=== PATIENT | male | born 1985 ===

== ENCOUNTER 2021-07-25 10:52 | Day surgery (SDC) | payer OTHER ==
[~2021-07-25] VITALS: Ht 182.9 cm; Wt 106.5 kg
[2021-07-25 11:18] VITALS: BP 128/78; PULSE 75; TEMP 98.1
[2021-07-25] MEDS ORDERED: NORCO 325 MG-51 TAB PO (15:12)
[2021-07-25 15:50] VITALS: BP 127/77; PULSE 74; TEMP 97.4
--- NOTE | 2021-07-25 15:50 | NUR ---
Patient arrives to [facility] [place] [address] via cart, accompanied by [employer] Minda. He is alert and oriented. He denies pain or nausea. He has 3 clean/dry/intact bandaids on his abdomen. He requests and receives soda and pudding to eat.
[2021-07-25 16:05] VITALS: BP 116/61; PULSE 79
--- NOTE | 2021-07-25 16:05 | NUR ---
Patient is tolerating PO well. VSS on room air. Denies pain, nausea, or need.
[2021-07-25 16:20] VITALS: BP 128/77; PULSE 65
--- NOTE | 2021-07-25 16:29 | NUR ---
Patient ambulates to the restroom, voids, and returns to room. He has met discharge criteria. Discharge instructions are discussed. He denies any questions and verbalizes understanding. PIV is removed with catheter intact and hemostasis achieved. He changes to his clothing independently.
--- NOTE | 2021-07-25 16:34 | NUR ---
Patient is escorted to the exit via wheelchair. He is discharged to home to the care of his mom, who drives him home in a private vehicle at [id number].
== END 2021-07-25 16:34 | disposition home or self-care (01) ==
LOC: SDCO 10:52
DX: K40.90 Unilateral inguinal hernia, without obstruction or gangrene, not specified as recurrent (principal); F17.210 Nicotine dependence, cigarettes, uncomplicated
CPT/HCPCS: C1781; J0690; J1100; J1170; J1885; J2405; J2704; J2710; J3010; J7120